=== PATIENT | male | born 2005 | race African-American/Black ===

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

== ENCOUNTER 2025-03-24 08:46 | Outpatient (CLI) | payer OTHER, SELFPAY ==
--- OUTSIDE RECORDS SUMMARY | 2025-03-24 08:58 | XMS_ITS | Clinical Summary ---
Author Organization [facility] Address [address] [place] [address] Care Team Providers Care Utility Worker [place] Name Role Phone Unavailable Primary Care Provider Unavailabl e Source Comments [facility],non-owned Affiliates and Associated Physician Practices is amultiple site organization consisting of ambulatory clinics and hospital sitesin [place], [place], [place] and [place]. This disclosure is being madepursuant to the Care Everywhere program and may not contain all information available regarding this patient. Last updated 18.[facility] Allergies No known active allergies Medications * Be aware that medications may not be up to date on this document. Alwaysverify current medications with the patient. albuterol (PROVENTIL;VENT ADRIANNA) (2.5 MG/3ML) 0.083% nebulizer solutionIndicat ions:asthma Inhale 2.5 mg by mouth every 6 hours as needed for Shortness of Breath or Wheezing Reasons: asthma 1 Box 1 7 Active Active Problems Problem Noted Date Diagnosed Date Asthma 12/02/2016 Immunizations Immunization Administration Dates Next Due INFLUENZA VACCINE, QUADR. (F LUZONE; FLULAVAL; FLUARIX; AFLURIA QUADRIVALENT; 6MO+), 0.5 ML (IIV4) 07/02/2020 Family History Relation Name Status Comments Brother 1 Alive Brother 2 Alive Father Alive Mother Alive Sister Alive Social History Tobacco Use Types Packs/Day Years Used Date Smoking Tobacco: Never Alcohol Use Standard Drinks/Week Comments No 0 (1 standard drink = 0.6 oz pur e alcohol) Sex and Gender Information Value Date Recorded Sex Assigned at Not on file Legal Sex Male 8:42 AM CDT Gender Identity Not on file Sexual Orientation Not on file Last Filed Vital Signs Vital Sign Reading Time Taken Comments Blood Pressure 118/76 12/02/2016 11:51 AM CDT Pulse 116 12/02/2016 11:51 AM CDT Temperature 36.9 C (98.5 F) 12/02/2016 11:51 AM CDT Respiratory Rate 20 12/02/2016 11:51 AM CDT Oxygen Saturation 99% 12/02/2016 11:51 AM CDT Inhaled Oxygen Concentration - - Weight 57.6 kg (127 lb) 12/02/2016 11:51 AM CDT Height 148.6 cm (4' 10.5) 12/02/2016 11:51 AM C DT Body Mass Index 26.09 12/02/2016 11:51 AM CDT Plan of Treatment Health Maintenance Due Date Last Done Comments HIV SCREENING 2018 HPV VACCINE (1 - Male 3-dose series) 2018 MENINGOCOCCAL (Group B) VACC INE SHARED DECISION-MAKING (1 of 2 - Standard) 2019 HEPATITIS C SCREENING 01/06/2021 DTAP/TDAP/TD VACCINES (1 - Tdap) 2022 HEPATITIS B VACCINE (1 of 3 - 19+ 3-dose series) 2022 COVID-19 VACCINE (1 - 2023-2 5 season) 2024 DEPRESSION SCREENING 08/04/2024 INFLUENZA VACCINE (#1) 2025 07/02/2020 ZOSTER VACCINE (1 of 2) 2053 HIB VACCINE Aged Out No longer eligi ble based on patient's age to complete this topic MENINGOCOCCAL GROUPS A/C/Y/W VACCINE Aged Out No longer eligible b ased on patient's age to complete this topic PNEUMOCOCCAL VACCINE Aged Out No long er eligible based on patient's age to complete this topic Insurance [employer]
[2025-03-24 12:59] LABS: Hematocrit 44.9 % (42.0-52.0); Hemoglobin 14.5 g/dL (14.0-18.0); Immature Granulocyte Percent A 0.5 % (0-0.5); Lymphocytes Absolute Auto 1.71 K/mm3 (0.9-3.2); Mean Corpuscular HGB Conc 32.3 g/dl (32-36); Mean Corpuscular Hemoglobin 29.4 pg (26-34); Mean Corpuscular Volume 91.1 fl (80-100); Nucleated Red Blood Cells Absolute Auto 0.000 K/mm3 (0.0-0.012); Nucleated Red Blood Cells Perc 0.0 % (0.0-0.2); Platelet Count Result 302 k/mm3 (150-375); Red Blood Count 4.93 M/mm3 (4.6-6.20); White Blood Count 10.6 K/mm3 (4.5-10.0)
[2025-03-24 13:13] LABS: Alanine Aminotransferase 90 U/L (6-50); Albumin Level 4.3 g/dL (3.5-5.1); Alkaline Phosphatase 142 U/L (38-126); Anion Gap 9 mmol/L (4-12); Aspartate Amino Transferase 74 U/L (17-59); Bilirubin,Total 0.5 mg/dL (0.2-1.3); Blood Urea Nitrogen 11 mg/dL (9-20); Calcium 9.7 mg/dL (8.4-10.2); Carbon Dioxide 24 mmol/L (22-30); Chloride 103 mmol/L (98-107); Cholesterol 203 mg/dL (0-200); Estimated Glomerular Filt Rate > 60; Glucose 91 mg/dL (65-110); HDL Direct 40 mg/dL; Potassium 4.5 mmol/L (3.4-5.0); Sodium 136 mmol/L (137-145); Total Protein 8.2 g/dL (6.3-8.2); Triglycerides 51 mg/dL (<150)
[2025-03-24 13:22] LABS: Free T4 Free Thyroxine 1.20 ng/dL (0.78-2.19)
[2025-03-24 13:36] LABS: Thyroid Stimulating Hormone Reflex 2.800 uIU/mL (0.465-4.68)
[2025-03-30 21:07] LABS: Free Testosterone (Direct) 7.6 pg/mL (9.3-26.5)
== END 2025-03-24 08:47 | disposition home or self-care (01) ==
LOC: ANHGOSHLAB 08:47
PROVIDERS: PCP Family Medicine; Visit Provider Nurse Practitioner Family
DX: Z00.00 Encounter for general adult medical examination without abnormal findings (principal); E30.0 Delayed puberty; Z13.220 Encounter for screening for lipoid disorders; E55.9 Vitamin D deficiency, unspecified
CPT/HCPCS: 36415; 80053; 80061; 82306; 84402; 84403; 84439; 84443; 85025